=== PATIENT | male | born 1960 | race Caucasian/White ===

== ENCOUNTER 2018-07-24 09:23 | Emergency (ER) | payer MEDICAID ==
[~2018-07-24] VITALS: Ht 180.3 cm; Wt 97.1 kg
[2018-07-24 09:25] VITALS: BP 110/74
[2018-07-24] MEDS ORDERED: COUMADIN4 MG ORAL (09:29)
[2018-07-24] MEDS ORDERED: BP med (09:29)
--- NOTE | 2018-07-24 09:30 | NUR ---
ED Nurse Note: Patient walked into ED with Dr. Michaela French for cauterizing a bleeder in the left face after a plastic surgery.
[2018-07-24] MEDS ORDERED: Lidocaine 1% 10mg/ml/Epi 0.005mg/ml 30ml vial INJ ONE (09:35)
--- NOTE | 2018-07-24 09:40 | NUR ---
ED Nurse Note: Plastic surgeon at bedside.
[2018-07-24] MEDS ORDERED: Lidocaine 1% 10mg/ml/EPI 0.01mg/ml 20ml INJ ONE (09:45)
--- NOTE | 2018-07-24 10:31 | Emergency Room Report ---
History of Present Illness General Chief Complaint: General Complaint Source: Patient Present Illness HPI Patient is a 58-year-old male who presented after increased bleeding from surgical site. Patient had a procedure done by Dr. Drake. Patient was noted to have hematoma to the left ear. Patient was noted to have increased bleeding. Patient had been brought into the emergency room and Dr. Drake met with the patient. Patient was undergoing procedure to improve hemostasis at the time I saw the patient. Allergies: Coded Allergies: No Known Allergies (Unverified , 07/24/18) Patient History Past Medical History: see triage record Reviewed Nursing Documentation: PMH: Agreed; PSxH: Agreed Nursing Documentation-PMH Past Medical History: No History, Except For Hx Cardiac Problems: Yes - a-fib Hx Hypertension: Yes Review of Systems All Other Systems: limited - by acuity Physical Exam Vital Signs Date Time Temp Pulse Resp B/P (MAP) Pulse Ox O2 Delivery O2 Flow Rate FiO2 07/24/18 09:25 98.2 54 17 110/74 97 Room Air Sp02 EP Interpretation: reviewed Head: atraumatic ENT: other - left preauricular hematoma Respiratory: normal inspection Cardiovascular #1: normal inspection, edema - slight facial swelling Gastrointestinal: normal inspection Musculoskeletal: normal inspection Neurologic: normal inspection, alert, responsive Psychiatric: normal inspection, judgement/insight normal, mood/affect normal Skin: no rash, other - left prearicular hematoma Medical Decision Making Diagnostic Impression: Primary Impression: Hematoma ER Course Patient presented for hematoma. Patient's care was primarily performed by Dr. Drake. Patient was noted to have adequate hemostasis and Dr. Drake was able to control bleeding. Patient was given medications to control bleeding per Dr. Drake. Patient was noted to have some eyelid swelling and sutures as well as left preauricular ear swelling.Discharge was performed as per Dr. Drake. Last Vital Signs Date Time Temp Pulse Resp B/P (MAP) Pulse Ox O2 Delivery O2 Flow Rate FiO2 07/24/18 09:41 54 17 Room Air 07/24/18 09:25 98.2 110/74 97 Status: improved Disposition: HOME, SELF-CARE Condition: Stable Referrals: NOT CHOSEN IPA/,REFERRING (PCP) Mikey Hernandez MD July 24, 2018 10:31
[2018-07-24 11:00] VITALS: BP 110/74
--- NOTE | 2018-07-24 11:00 | NUR ---
ER DISCHARGE NOTE: Patient is discharged per Dr. Jennings, patient left the ED with Dr. Jennings after the hemostasis is performed. pt is aox4, on room air, with stable vital signs. pt is ambulated out of ED with steady gait. pt took all belongings.
== END 2018-07-24 11:00 | disposition home or self-care (01) ==
LOC: EMR 09:50
DX: H95.51 Postprocedural hematoma of ear and mastoid process following a procedure on the ear and mastoid process (principal); I10 Essential (primary) hypertension; I48.91 Unspecified atrial fibrillation
CPT/HCPCS: 99283